=== PATIENT | male | born 1975 | race Caucasian/White ===

== ENCOUNTER 2017-10-17 13:51 | Emergency (ER) ==
[2017-10-17 14:03] VITALS: BP 148/82; TEMP 98; BMI 28.0
--- NOTE | 2017-10-17 17:50 | ED.PDOC ---
Medical Screening Exam - General Information Time Seen by Physician*: 17:00 Mode of Arrival: Walk-In Information Source: Patient - History Chief Complaint: Urinary Problem Stated Complaint: tiny bit of pink in my urind, my prostate feels like a lot of pressure Onset/Duration: 1 week Symptoms Are: Still present Timing: Intermittent Severity: Mild - Review Of Systems Constitutional: None CV: Reports: None Respiratory: Reports: None GI: Reports: None : Reports: None (c/o hematuria) Musculoskeletal: Reports: None Neuro: Reports: None - Past Medical History Past Medical History: Previously healthy - Examination Findings Visit Related to : No - Medical Decision Making Emergency Medical Condition: No Physical Exam - Physical Exam Appearance: Well-appearing, No pain distress, Well-nourished Eyes: BOUBACAR, EOMI, Conjunctiva clear ENT: Ears normal, Nose normal, Oropharynx normal Neck: Supple Respiratory: Airway patent, Breath sounds clear, Breath sounds equal, Respirations nonlabored Cardiovascular: RRR, Pulses normal, No rub, No murmur GI/: Soft, Nontender (no abd pain mild pressuer with digital exam), No masses , Bowel sounds normal, No Organomegaly Musculoskeletal: Normal strength, ROM intact, No edema, No calf tenderness Skin: Warm, Dry, Normal color Neurological: Sensation intact, Motor intact, Reflexes intact, Cranial nerves intact, Alert, Oriented Psychiatric: Affect appropriate, Mood appropriate Interpretation - Radiology Interpretation Exam Interpreted: Other (UA showed tiny amount of blood) Re-Evaluation - Re-Evaluation Time of Re-Evaluation: 17:45 Status: Unchanged Vital Signs Stable: Yes Pain Level: zero Appearance: NAD Lungs: Clear Skin: Warm and Dry Neuro: Alert and Oriented X3 CV: RRR Critical Care Note - Critical Care Note Total Time (mins): 0 Course - Course Orders, Labs, Meds: Lab Review 10/17/17 16:47 Urine Color Yellow Urine Clarity Slightly Urine pH 7.0 Ur Specific [place] 1.025 Urine Protein Negative Urine Glucose (UA) Negative Urine Ketones Negative Urine Blood Trace-intact Urine Nitrite Negative Urine Bilirubin Negative Urine Urobilinogen 1.0 Ur Leukocyte Esterase Negative Urine Microscopic RBC 2-5 Ur Squamous Epith Cells Not present Amorphous Sediment 3+ Orders Category Date Time Status UA [URINALYSIS C & S IF INDICATED] Stat LAB 10/17/17 16:47 Completed Vital Signs: Temp Pulse Resp BP Pulse Ox 10/17/17 13:54 98.0 F 71 20 148/82 H 97 Departure - Departure Time of Disposition: 18:00 Disposition: HOME SELF-CARE Discharge Problem: Acute prostatitis with hematuria Condition: Good Pt referred to PMD for follow-up: Yes IPMP verified?: No Allergies/Adverse Reactions: Allergies No Known Allergies Allergy (Unverified 10/17/17 14:03) Home Medications: Ambulatory Orders 1 [No Reported Medications] 10/17/17
== END 2017-10-17 18:08 | disposition home or self-care (01) ==
LOC: ED 13:51
DX: N41.0 Acute prostatitis (principal); R31.9 Hematuria, unspecified
CPT/HCPCS: 81001; 99283